=== PATIENT | male | born 1980 | race Caucasian/White ===

== ENCOUNTER 2024-07-04 19:44 | Emergency (ER) | payer BC ==
[~2024-07-04] VITALS: Ht 172.7 cm; Wt 156.8 kg
[~2024-07-04 19:44] MED LIST: ADVIL200 MG PO; ASPIRIN E.C. 8181 MG PO; BRILINTA90 MG PO; ELECTROLYTES PO; LIPITOR 80MG80 MG PO; NITROSTAT0.4 MG/TAB SL; NORVASC 10MG10 MG PO; ONE-A-DAY MEN'S1 TAB PO; TOPROL XL 25MG25 MG PO
[2024-07-04 19:53] VITALS: TEMP 97.4
[2024-07-04] MEDS ORDERED: NS 1,000 ML IV ONE (22:00)
[2024-07-04] MEDS ORDERED: Ketorolac 30 MG/ML VIAL IV ONE (22:00)
[2024-07-04 22:13] LABS: BASO % 0.6 % (0.0-2.0); EOS # 0.3 K/mm3 (0.0-0.7); GRAN # 3.7 K/mm3 (1.4-6.5); HEMATOCRIT 40.1 % (42.0-52.0); HEMOGLOBIN 14.1 g/dl (13.5-18.0); LYMPH % 30.4 % (20.0-51.0); MEAN CELL VOLUME 89 fl (80.0-100.0); MEAN CORPUSCULAR HEMOGLOBIN 31 pg (27-31); MEAN CORPUSCULAR HGB CONC 35 g/dl (33.0-37.0); MEAN PLATELET VOLUME 8.9 fl (7.4-10.4); MONO # 0.5 K/mm3 (0.1-0.6); MONO % 7.8 % (1.7-9.3); PLATELET COUNT 336 K/mm3 (130-400); RED BLOOD COUNT 4.49 M/mm3 (4.20-5.60)
[2024-07-04 22:32] LABS: ALBUMIN 4.2 g/dL (3.5-5.0); BILIRUBIN,TOTAL 0.5 mg/dL (0.2-1.2); CALCIUM 9.6 mg/dL (8.4-10.2); CREATININE, serum 1.57 mg/dL (0.72-1.25); POTASSIUM 3.9 mEq/L (3.5-4.5); TOTAL PROTEIN 7.2 g/dl (6.2-8.1)
[2024-07-05 00:19] LABS: COLLECTION METHOD CLEAN CATCH
[2024-07-05 00:29] LABS: PH 5.5 (5.0-8.5); URINE APPEARANCE TURBID (CLEAR/HAZY); URINE BLOOD 2+ (NEGATIVE); URINE COLOR ORANGE (YELLOW); URINE GLUCOSE NEGATIVE (NEGATIVE); URINE KETONE NEGATIVE (NEGATIVE); URINE NITRATE NEGATIVE (NEGATIVE); URINE PROTEIN(semi-quant) 2+ (NEGATIVE); URINE UROBILINOGEN 0.2 E.U/dL (0.2-1.0)
[2024-07-05] MEDS ORDERED: ZOFRAN ODT4 MG PO (01:19)
[2024-07-05] MEDS ORDERED: FLOMAX 0.40.4 MG/CAP PO (01:19)
[2024-07-05] MEDS ORDERED: NORCO 325 MG-51 TAB PO (01:19)
[2024-07-05 01:32] VITALS: BP 151/91; PULSE 86
== END 2024-07-05 01:32 | disposition home or self-care (01) ==
LOC: COL.ER 19:44
PROVIDERS: Emergency Medicine
DX: N13.2 Hydronephrosis with renal and ureteral calculous obstruction (principal); I10 Essential (primary) hypertension; E78.00 Pure hypercholesterolemia, unspecified; Z79.899 Other long term (current) drug therapy; Z87.442 Personal history of urinary calculi
CPT/HCPCS: J1885; J7030